=== PATIENT | female | born 1990 | race Caucasian/White ===

== ENCOUNTER 2022-04-23 11:48 | Inpatient (IN) | payer OTHER ==
[2022-04-23] MEDS ORDERED: Nalbuphine HCl 10 MG/ 1ML Amp IVPUSH PRN (12:21)
[2022-04-23] MEDS ORDERED: Ondansetron 4 MG/2 ML SDV IVPUSH PRN (12:21)
[2022-04-23] MEDS ORDERED: Sodium Chloride 0.9% 10 ML Syringe FLUSH PRN (12:21)
[2022-04-23] MEDS ORDERED: Magnesium Sulfate/Water 4 GM in Premix Bag 1 BAG IV ONE (12:25)
[2022-04-23] MEDS ORDERED: Magnesium Sulfate/Water 2 GM in Premix Bag 1 BAG IV ONE (12:25)
[2022-04-23] MEDS ORDERED: Calcium Gluconate 10% 1 GM/10 ML SDV IV PRN (12:25)
[2022-04-23] MEDS ORDERED: Oxytocin/Lactated Ringers 10 UNIT/1,000 ML BAG IV SCH ×2 (12:30)
[2022-04-23] MEDS ORDERED: Labetalol 100 MG/20 ML MDV IVPUSH ONE (12:30)
[2022-04-23] MEDS ORDERED: Lactated Ringers 1,000 ML IV SCH (12:30)
[2022-04-23] MEDS: Betamethasone Acetate/Betamethasone Sod Phosphate 30 MG/5 ML MDV IM ONE (12:51)
[2022-04-23] MEDS ORDERED: Misoprostol 25 MCG (1/4 of 100 MCG) Tab VAG ONE (13:00)
[2022-04-23] MEDS: Lactated Ringers 1,000 ML IV SCH (13:35)
[2022-04-23] MEDS: Magnesium Sulfate/Water 40 GM/1,000 ML BAG IV SCH (14:03)
[2022-04-23] MEDS ORDERED: Labetalol 100 MG/20 ML MDV ONE (14:29)
[2022-04-23] MEDS ORDERED: diphenhydrAMINE 50 MG/ML SDV IVPUSH PRN (17:08)
[2022-04-23] MEDS ORDERED: fentaNYL 100 MCG/2 ML SDV EPIDUR PRN (17:08)
[2022-04-23] MEDS ORDERED: Bupivacaine/fentaNYL/NS 100 ML Bag EPIDUR PRN (17:08)
[2022-04-23] MEDS ORDERED: ePHEDrine 50 MG/ML SDV IVPUSH PRN (17:08)
[2022-04-23] MEDS: Misoprostol 25 MCG (1/4 of 100 MCG) Tab VAG SCH ×2 (18:18→22:33)
[2022-04-23] MEDS ORDERED: Acetaminophen 325 MG Tab PO PRN (20:12)
[2022-04-23] MEDS: Sodium Chloride 0.9% 10 ML Syringe FLUSH SCH (22:25)
[2022-04-24] MEDS ORDERED: Bupivacaine 0.25% 10 ML SDV ONE
[2022-04-24] MEDS: Misoprostol 25 MCG (1/4 of 100 MCG) Tab VAG SCH (02:22)
[2022-04-24] MEDS: Betamethasone Acetate/Betamethasone Sod Phosphate 30 MG/5 ML MDV IM ONE (06:21)
[2022-04-24] MEDS: Sodium Chloride 0.9% 10 ML Syringe FLUSH SCH ×2 (09:47→22:24)
[2022-04-24] MEDS: Magnesium Sulfate/Water 40 GM/1,000 ML BAG IV SCH (10:16)
[2022-04-24] MEDS ORDERED: Ampicillin 2 GM in Sodium Chloride 0.9% 100 ML IV ONE (12:15)
[2022-04-24] MEDS: Lactated Ringers 1,000 ML IV SCH (18:28)
[2022-04-24] MEDS ORDERED: Citric Acid/Sodium Citrate Solution 30 ML Cup PO ONE (19:20)
[2022-04-24] MEDS ORDERED: Azithromycin 500 MG in Sodium Chloride 0.9% 250 ML IV ONE (19:20)
[2022-04-24] MEDS ORDERED: Metoclopramide 10 MG/2 ML SDV IVPUSH ONE (19:20)
[2022-04-24] MEDS ORDERED: ceFAZolin 2 GM in Sodium Chloride 0.9% 50 ML IV ONE (19:20)
[2022-04-24] MEDS ORDERED: Lidocaine 2% with EPINEPHrine 1:200,000 20 ML SDV ONE (19:25)
[2022-04-24] MEDS ORDERED: Sodium Bicarbonate 8.4% 50 MEQ/50 ML SDV ONE (19:25)
[2022-04-24] MEDS ORDERED: Ondansetron 4 MG/2 ML SDV ONE (19:25)
[2022-04-24] MEDS ORDERED: Morphine PF 10 MG/10 ML SDV ONE (19:25)
[2022-04-24] MEDS ORDERED: ceFAZolin 2 GM Vial ONE (19:25)
[2022-04-24] MEDS ORDERED: Phenylephrine HCl In 0.9% NaCl 1 MG/10 ML Vial ONE (19:27)
[2022-04-24] MEDS ORDERED: ePHEDrine 50 MG/ML SDV ONE (19:27)
[2022-04-24] MEDS ORDERED: Carboprost Tromethamine 250 MCG/1 ML Amp ONE (19:57)
[2022-04-24] MEDS ORDERED: Lactated Ringers 1,000 ML ONE (20:11)
[2022-04-24] MEDS ORDERED: Ketorolac 30 MG/ML SDV ONE (20:12)
[2022-04-24] MEDS ORDERED: fentaNYL 100 MCG/2 ML SDV IVPUSH PRN (20:33)
[2022-04-24] MEDS ORDERED: Ondansetron 4 MG/2 ML SDV IVPUSH PRN (20:33)
[2022-04-24] MEDS ORDERED: Meperidine 50 MG/ML Vial IVPUSH PRN (20:33)
[2022-04-24] MEDS ORDERED: diphenhydrAMINE 50 MG/ML SDV IVPUSH PRN (20:33)
[2022-04-24] MEDS ORDERED: Ondansetron 4 MG/2 ML SDV IV PRN (22:24)
[2022-04-24] MEDS ORDERED: Naloxone 0.4 MG/ML SDV IVPUSH PRN (22:24)
[2022-04-24] MEDS ORDERED: Docusate Sodium 100 MG Cap PO PRN (22:24)
[2022-04-24] MEDS ORDERED: Acetaminophen/oxyCODONE 325-5 MG Tab PO PRN ×2 (22:24)
[2022-04-25] MEDS: Lactated Ringers 1,000 ML IV SCH ×2 (00:46→13:55)
[2022-04-25] MEDS: Ketorolac 30 MG/ML SDV IVPUSH SCH ×3 (02:00→14:19)
[2022-04-25] MEDS: Magnesium Sulfate/Water 40 GM/1,000 ML BAG IV SCH (09:15)
[2022-04-25] MEDS: Ibuprofen 600 MG Tab PO PRN (21:12)
[2022-04-26] MEDS: Ibuprofen 600 MG Tab PO PRN ×3 (04:05→20:52)
[2022-04-26] MEDS: Acetaminophen 325 MG Tab PO PRN (16:09)
[2022-04-27] MEDS: Acetaminophen 325 MG Tab PO PRN (00:03)
== END 2022-04-27 17:10 | disposition home or self-care (01) | DRG 788 ==
LOC: JD.OBCHECK 11:48 → JD.OB 11:50 → JD.OBCHECK 13:27 → JD.OB 13:29 → OBSVTOIN 04-24 20:39 → JD.OB 04-24 20:40
PROVIDERS: ADMIT Obstetrics & Gynecology; ATTEND Obstetrics & Gynecology
PROC: 10D00Z1 Extraction of Products of Conception, Low, Open Approach (ICD-10-PCS; principal; 2022-04-24)
PROC: 10907ZC Drainage of Amniotic Fluid, Therapeutic from Products of Conception, Via Natural or Artificial Opening (ICD-10-PCS; 2022-04-24)
PROC: 10H07YZ Insertion of Other Device into Products of Conception, Via Natural or Artificial Opening (ICD-10-PCS; 2022-04-24)
PROC: 3E0R3BZ Introduction of Anesthetic Agent into Spinal Canal, Percutaneous Approach (ICD-10-PCS; 2022-04-24)
PROC: 00HU33Z Insertion of Infusion Device into Spinal Canal, Percutaneous Approach (ICD-10-PCS; 2022-04-24)
PROC: 3E033VJ Introduction of Other Hormone into Peripheral Vein, Percutaneous Approach (ICD-10-PCS; 2022-04-24)
DX: O14.14 Severe pre-eclampsia complicating childbirth (principal); Z37.0 Single live birth; O60.14X0 Preterm labor third trimester with preterm delivery third trimester, not applicable or unspecified; O43.123 Velamentous insertion of umbilical cord, third trimester; O36.5930 Maternal care for other known or suspected poor fetal growth, third trimester, not applicable or unspecified; Z86.16 Personal history of COVID-19; Z3A.36 36 weeks gestation of pregnancy
CPT/HCPCS: 01967; 01968; 36410; 36415; 51702; 59025; 59409; 82565; 82570; 83615; 84156; 84450; 84460; 84520; 84550; 85025; 85027; 86592; 86850; 86900; 86901; 87653; 99140; A9270-GY; J0290; J0456; J0690; J0702; J1200; J1885; J2274; J2405; J2590; J2765; J3010; J3475; J3490; J7050; J7120

== ENCOUNTER 2022-05-10 19:14 | Inpatient (IN) | payer OTHER ==
[2022-05-10] MEDS ORDERED: Sodium Chloride 0.9% 10 ML Syringe FLUSH PRN (19:43)
[2022-05-10] MEDS ORDERED: Labetalol 100 MG/20 ML MDV IVPUSH ONE (19:56)
[2022-05-10] MEDS ORDERED: Acetaminophen 325 MG Tab PO ONE (19:57)
[2022-05-10] MEDS ORDERED: Magnesium Sulfate/Water 4 GM in Premix Bag 1 BAG IV ONE ×3 (21:29→21:59)
[2022-05-10] MEDS ORDERED: Magnesium Sulfate (4.06 MEQ/ML) 5 GM/10 ML SDV IV STA (21:30)
[2022-05-10] MEDS ORDERED: Calcium Gluconate 10% 1 GM/10 ML SDV IV PRN (21:59)
[2022-05-10] MEDS ORDERED: Magnesium Sulfate/Water 2 GM in Premix Bag 1 BAG IV ONE (21:59)
[2022-05-10] MEDS ORDERED: Lactated Ringers 1,000 ML IV SCH (22:00)
[2022-05-10] MEDS: Magnesium Sulfate/Water 40 GM/1,000 ML BAG IV SCH (22:53)
[2022-05-10] MEDS ORDERED: Labetalol 100 MG/20 ML MDV IVPUSH PRN (23:56)
[2022-05-11] MEDS ORDERED: Magnesium Sulfate/Water 2 GM in Premix Bag 1 BAG IV ONE (02:30)
[2022-05-11] MEDS: Acetaminophen 325 MG Tab PO PRN ×2 (11:44→18:08)
[2022-05-11] MEDS ORDERED: Labetalol 100 MG Tab PO ONE (14:31)
[2022-05-12] MEDS: Magnesium Sulfate/Water 40 GM/1,000 ML BAG IV SCH (06:10)
[2022-05-12] MEDS ORDERED: Labetalol 100 MG Tab PO SCH (09:00)
== END 2022-05-12 08:35 | disposition home or self-care (01) | DRG 776 ==
LOC: JD.ED 19:14 → JD.ICU 22:25
PROVIDERS: ADMIT Pediatrics; ATTEND Obstetrics & Gynecology
DX: O14.15 Severe pre-eclampsia, complicating the puerperium (principal); Z86.16 Personal history of COVID-19
CPT/HCPCS: 36415; 80053; 81001; 83735; 85025; 85610; 87086; 93005; 96374; 96375; 99285-25; A9270-GY; J3475; J3490; J7120